=== PATIENT | male | born 1935 | race Caucasian/White ===

== ENCOUNTER 2017-05-27 09:00 | Outpatient (CLI) | payer MEDICARE ==
--- NOTE | 2017-05-27 11:23 | RAD ---
TWO VIEW CHEST: COMPARISON: 10/09/16. INDICATION: Dyspnea. FINDINGS: Stable linear densities at left lung base. There is normal size of cardiomediastinal silhouette. R ight lung remains clear. IMPRESSION: Stable chest with persistent linear densities at left lung base which may relate to scar. POS: PORFIRIOH
== END 2017-05-27 09:01 | disposition home or self-care (01) ==
LOC: RAD 09:00
PROVIDERS: ATTEND Internal Medicine Critical Care Medicine
DX: R06.00 Dyspnea, unspecified (principal); J98.4 Other disorders of lung
CPT/HCPCS: 71020

== ENCOUNTER 2018-11-26 11:48 | Outpatient (CLI) | payer MEDICARE ==
--- NOTE | 2018-11-26 15:02 | CT ---
CT CHEST WITH IV CONTRAST: Date: 11/26/18 Multiple axial tomograms obtained through chest with IV enhancement. INDICATION: History of kidney cancer. Shortness of breath. Correlation made to 2 view chest exam of 05/27/17. FINDINGS: Lung cruz now reveal numerous pulmonary nodules throughout both lungs, which are too numerous to co unt. The largest mass lesion is seen in the perihilar region left mid lung field which measures up to 3.0 cm in the axial plane. Another larger lesion in the left upper lobe measures 2.5 cm. There are s everal lesions in the left lower lobe which measure 1.5-2.0 cm. Numerous lesions bilaterally measure 1.0-1.5 cm with numerous subcentimeter nodules as well. There is left hilar adenopathy with a large area of adenopathy in the left hilar region measuring 3.0 cm with an adjacent area of adenopathy measuring 1.5 cm in the left hilar region. There is also righ t hilar adenopathy with an area of right hilar adenopathy measuring up to 2.0 cm in the axial plane. Images through the upper abdomen reveal a low density lesion in the left lobe of the liver which has irregular shape measuring up to 2.0 cm. There is a low density lesion in the peripheral right lobe of the liver along the lateral margin measuring 2.5 cm. While these are indeterminate on this single ph ase study, the densities suggest hepatic cysts. The spleen is unremarkable. Right kidney is partially imaged. Left nephrectomy changes are noted. Review of the osseous structures show degenerative changes in the spine. No foal osseous lytic or fernando stic lesion identified. IMPRESSION: Numerous bilateral pulmonary nodules are present as described above. There is associated mediastinal and hilar adenopathy as described above. 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 POS: OLIVIER
== END 2018-11-26 11:49 | disposition home or self-care (01) ==
LOC: CT 11:48
PROVIDERS: ATTEND Internal Medicine Hematology & Oncology
DX: C64.1 Malignant neoplasm of right kidney, except renal pelvis (principal); R91.8 Other nonspecific abnormal finding of lung field; R59.0 Localized enlarged lymph nodes
CPT/HCPCS: 71260

== ENCOUNTER 2019-04-23 10:00 | Outpatient (CLI) | payer MEDICARE ==
--- NOTE | 2019-04-23 13:19 | CT ---
Exam: Chest, abdomen, and pelvic CT scan without IV contrast: HISTORY: History right kidney cancer, prior nephrectomy COMPARISON: Chest CT, 11/26/2018 FINDINGS: Interval development of a moderate to large right pleural effusion and a small left pleural effusion with some bibasilar pulmonary parenchymal changes evidence for partial atelectasis. There are several bilateral poorly circumscribed pulmonary nodules the largest of which which is distinctly see n is in the left upper lobe now measuring 1.2 cm where it previously measured 2.5 cm the previously noted 3 cm diameter left lower lobe mass is somewhat obscured by left lower lobe atelectasis. No medi astinal mass or new adenopathy. Several circumscribed low-attenuation foci are noted within the liver, stable, probably cysts. The pa tiemarlene does have a right kidney with slight fullness of the right upper renal collecting system, without acute obstruction and evidence for probable small right renal cyst. No left kidney is seen co nsistent with prior left nephrectomy. There is some generalized subcutaneous fat stranding. Guaman catheter is noted in the bladder. Small fat-containing hernias. Colonic diverticulosis without acute diverticulitis. Small amount of pericardial fluid. IMPRESSION: Developing bilateral pleural effusions, and bilateral partial atelectasis since the prior study. The numerous previously noted pulmonary nodules have markedly decreased in size. Evidence for left nephrectomy. Stable circumscribed low-attenuation foci within the liver. Evidence for subcutaneous anasarca. Other findings as above.
== END 2019-04-23 10:01 | disposition home or self-care (01) ==
LOC: BICCT 10:00
PROVIDERS: ATTEND Internal Medicine Hematology & Oncology
DX: C64.1 Malignant neoplasm of right kidney, except renal pelvis (principal); J90 Pleural effusion, not elsewhere classified; J98.11 Atelectasis; R91.8 Other nonspecific abnormal finding of lung field; K57.30 Diverticulosis of large intestine without perforation or abscess without bleeding; R60.1 Generalized edema; Z90.5 Acquired absence of kidney
CPT/HCPCS: 71250; 74177; 82565